=== PATIENT | male | born 1960 | race American Indian/Alaskan Native ===

== ENCOUNTER 2017-08-09 05:52 | Inpatient (IN) | payer OTHER, SELFPAY ==
[2017-08-09] MEDS ORDERED: ASPIRIN PO ONE (06:15)
[2017-08-09 06:31] LABS: Basophils % (Auto) 0.6 % (0.0-1.8); Eosinophils # (Auto) 0.1 K/mm3 (0.0-0.4); Eosinophils % (Auto) 2.6 % (0.0-4.3); Hematocrit 41.1 % (35.5-45.6); Hemoglobin 13.6 gm/dl (11.8-15.2); Lymphocytes # (Auto) 2.6 K/mm3 (1.2-5.4); Lymphocytes % (Auto) 45.2 % (13.4-35.0); Mean Corpuscular HGB Conc 33 % (32-34); Mean Corpuscular Hemoglobin 31 pg (28-32); Mean Corpuscular Volume 94 fl (84-94); Monocytes # (Auto) 0.4 K/mm3 (0.0-0.8); Monocytes % (Auto) 7.7 % (0.0-7.3); Platelet Count 255 K/mm3 (140-440); Red Blood Count 4.37 M/mm3 (3.65-5.03); Red Cell Distribution Width 13.6 % (13.2-15.2)
[2017-08-09 06:49] LABS: BUN/Creatinine Ratio 19; Blood Urea Nitrogen 19 mg/dL (9-20); Calcium 9.3 mg/dL (8.4-10.2); Hemolysis Index 7
[2017-08-09] MEDS ORDERED: MORPHINE IV ONE (07:19)
[2017-08-09] MEDS ORDERED: ZOFRAN IV ONE (07:19)
[2017-08-09] MEDS ORDERED: BABY ASPIRIN PO ONE (08:55)
[2017-08-09] MEDS ORDERED: APRESOLINE IV ONE (08:55)
--- NOTE | 2017-08-09 08:55 | Emergency Department Report ---
HPI - General Chief Complaint: Chest Pain Time Seen by Provider: 08/09/17 06:53 - HPI HPI: The patient is a 56-year-old male who presents for valuation chest pain. The patient reports chest pain or cough for the past 3 days, constant for the past one day, left-sided, moderate in severity, pressure-like in quality, exacerbated with deep breaths. The patient denies fever, neck pain, parasthesias , dyspnea, cough, hemoptysis, palpitations, dizziness, syncope, unilateral leg swelling, calf muscle pain. Patient also denies cocaine or other stimulant use , history of DVT or PE, recent immobilization, or history of cancer. ED Past Medical Hx - Past Medical History Previous Medical History?: No Hx Hypertension: No Hx Heart Attack/AMI: No Hx Congestive Heart Failure: No Hx Diabetes: No Hx Deep Vein Thrombosis: No Hx Pulmonary Embolism: No Hx Liver Disease: No Hx Renal Disease: No Hx Sickle Cell Disease: No Hx Arthritis: No Hx Seizures: No Hx Kidney Stones: No Hx Asthma: No Hx COPD: No Hx Tuberculosis: No Hx HIV: No - Surgical History Hx Coronary Stent: No Hx Open Heart Surgery: No Hx Pacemaker: No Hx Internal Defibrillator: No Hx Cholecystectomy: No Hx Appendectomy: Yes (?) Hx Breast Surgery: No - Social History Smoking Status: Never Smoker Substance Use Type: Alcohol - Medications Home Medications: Home Medications Medication Instructions Recorded Confirmed Last Taken Type Aspirin [Aspirin BABY CHEW TAB] 81 mg PO QDAY 02/08/13 02/08/13 02/15/13 History Levofloxacin 500Mg/100Ml [Levaquin 500 mg PO DAILY #3 bag 02/11/13 02/14/13 Rx IV PREMIX] Hydrocodone Bit/Acetaminophen 1 each PO Q4H PRN #24 tablet 02/25/13 Unknown Rx [Vicodin 5/500] ED Review of Systems ROS: Stated complaint: CHEST PAIN Other details as noted in HPI Constitutional: denies: fever ENT: denies: throat or neck pain Respiratory: denies: cough, shortness of breath Cardiovascular: reports: chest pain Endocrine: denies unexplained weight loss or gain Gastrointestinal: denies: abdominal pain, nausea Genitourinary: denies: dysuria Musculoskeletal: denies: leg swelling Skin: denies: rash Neurological: denies: headache Hematological/Lymphatic: denies: easy bleeding or easy bruising Psych: denies sadness or hopelessness Physical Exam - Physical Exam Vital Signs: Vital Signs 08/09/17 06:09 Temperature 97.5 F L Pulse Rate 72 Respiratory 18 Rate Blood Pressure 159/93 O2 Sat by Pulse 98 Oximetry Physical Exam: General: well-nourished, well-developed, no acute distress Head: Normocephalic, atraumatic Eyes: normal sclera ENT: Mucous membranes are pink and moist Neck: trachea midline, neck supple, No neck stiffness, no cervical adenopathy Respiratory: Breath sounds equal bilaterally, no wheezing, rales, or rhonchi Cardio: S1 and S2 present, no murmurs, rubs, gallops, capillary refill is brisk Abdomen: Normoactive bowel sounds, soft abdomen, no rigidity, no guarding or rebound tenderness Chest WALL/Back: No tenderness to palpation of the chest wall, no CVA tenderness with percussion Musc: No pitting edema Skin: No rash Neuro: no facial drooping, normal speech Psych: Normal affect ED Course Vital Signs 08/09/17 06:09 Temperature 97.5 F L Pulse Rate 72 Respiratory 18 Rate Blood Pressure 159/93 O2 Sat by Pulse 98 Oximetry ED Medical Decision Making - Lab Data Result diagrams: 08/09/17 06:17 08/09/17 06:17 - Medical Decision Making The patient was seen and examined by myself. The patient is placed on a cardiac exercise physiologist and continuous pulse ox. On initial evaluation, the patient was found to be in no distress. EKG was negative for findings suggestive of acute cardiac infarct. The patient is given an aspirin and IV pain medicine. Labs and imaging are obtained. Chest x-ray is negative for pneumothorax, focal consolidation, pulmonary vascular congestion, pleural effusion, or other obvious acute cardiopulmonary disease process. Lab results were non-revealing including negative troponin, WBC, hemoglobin, hematocrit, electrolytes, renal function. CT and a gram of the chest is negative for aortic dissection or pulmonary embolus. The patient was reevaluated and reported that their symptoms were improved. As the patient has chest pain and risk factors for development of acute coronary event, the patient will be admitted for close cardiopulmonary monitoring, serial troponins , and evaluation by cardiology. The physician on-call was contacted. They presented to the emergency department and evaluated the patient. They agreed to admit the patient. The ED admit order was placed. The patient was admitted in guarded condition. Critical care attestation.: If time is entered above; I have spent that time in minutes in the direct care of this critically ill patient, excluding procedure time. ED Disposition Clinical Impression: Acute chest pain, Hypertensive urgency Disposition: DC-09 OP ADMIT IP TO THIS HOSP Is pt being admited?: Yes Does the pt Need Aspirin: Yes Condition: Stable Instructions: Chest Pain (ED) Referrals: SRAVANTHI PINON JR, MD [Primary Care Provider] - 3-5 Days Time of Disposition: 08:55
--- NOTE | 2017-08-09 09:30 | XRay Report ---
PORTABLE CHEST: Chest pain. An AP portable view of the chest demonstrates a normal cardiac contour considering the limits of this technique. The lungs are clear with no evidence of infiltrate, fluid or failure. IMPRESSION: Normal portable chest.
--- NOTE | 2017-08-09 09:48 | Cat Scan Report ---
CT angiogram the chest: Chest pain. Following injection of contrast transverse images were obtained through the chest using pulmonary embolus protocol. Coronal and sagittal 2-D reformatted images as well as 3-D MIP images included. There is good opacification of the pulmonary vessels and cardiac chambers with no filling defects. The thoracic aorta is well-opacified and normal in size and contour. No adenopathy. The central airways are patent. The lungs are clear with no infiltrate and no nodule. No pleural disease identified. No chest wall abnormality. Impression: Normal exam.
--- NOTE | 2017-08-09 10:39 | History and Physical Report ---
History of Present Illness Chief complaint: My chest was hurting History of present illness: 56 YO Male with Obesity, presents to ED for evaluation. Pt states that he has experienced pain in his chest for the past 3 days. Pt states that pain is 6/10, constant, localized to the left chest, worse with deep breathing, relieved with rest, not associated with shortness of breath. Pt denies fever, chills, palpitations, leg swelling, calf pain, prolonged travel/immobility, hemoptysis, individual/family history of DVT/PE, productive cough, or recent ill contacts. Pt seen and evaluated in ED and found to have ACS. Pt admitted to telemetry. Past History Past Medical History: other (Obesity) Past Surgical History: appendectomy Social history: . denies: smoking, alcohol abuse, prescription drug abuse Family history: CAD, hypertension Medications and Allergies Allergies Allergy/AdvReac Type Severity Reaction Status Date / Time No Known Allergies Allergy Unverified 02/07/13 14:44 Home Medications Medication Instructions Recorded Confirmed Last Taken Type Aspirin [Aspirin BABY CHEW TAB] 81 mg PO QDAY 02/08/13 08/09/17 02/15/13 History Levofloxacin 500Mg/100Ml [Levaquin 500 mg PO DAILY #3 bag 02/11/13 08/09/1705/17 Rx IV PREMIX] Hydrocodone Bit/Acetaminophen 1 each PO Q4H PRN #24 tablet 02/25/13 08/09/17 Unknown Rx [Vicodin 5/500] Review of Systems Constitutional: no weight loss, no weight gain, no fever, no chills Ears, nose, mouth and throat: no ear pain, no ear discharge, no tinnitis, no decreased hearing, no nose pain, no nasal congestion, no nasal discharge, no sinus pressure Cardiovascular: chest pain, no orthopnea, no palpitations, no rapid/irregular heart beat, no edema, no syncope Respiratory: no cough, no cough with sputum, no hemoptysis, no shortness of breath, no dyspnea on exertion Gastrointestinal: no abdominal pain, no nausea, no vomiting, no diarrhea, no constipation, no change in bowel habits Genitourinary Male: no hematuria, no flank pain, no discharge, no urinary frequency, no urinary hesitancy, no nocturia, no incontinence Rectal: no pain, no incontinence, no bleeding Musculoskeletal: no neck pain, no shooting arm pain, no arm numbness/tingling, no low back pain, no shooting leg pain, no leg numbness/tingling Integumentary: no rash, no pruritis, no redness, no sores, no wounds, no jaundice, no boils Neurological: no transient paralysis, no paralysis, no weakness, no parathesias , no numbness, no tingling, no seizures, no syncope, no tremors Psychiatric: no anxiety, no memory loss, no change in sleep habits, no sleep disturbances, no insomnia, no hypersomnia, no change in appetite, no change in libido, no suicidal ideation Endocrine: no cold intolerance, no heat intolerance, no polyphagia, no excessive thirst, no polydipsia, no polyuria, no nocturia Hematologic/Lymphatic: no easy bruising, no easy bleeding, no lymphadenopathy, no lymphedema Allergic/Immunologic: no urticaria, no allergic rhinitis, no wheezing Exam - Constitutional Vitals: Temp Pulse Resp BP Pulse Ox 97.5 F L 84 16 124/84 95 08/09/17 06:09 08/09/17 09:05 08/09/17 09:05 08/09/17 09:13 08/09/17 09:05 General appearance: Present: mild distress - EENT Eyes: Present: PERRL ENT: hearing intact, clear oral mucosa - Neck Neck: Present: supple, normal ROM - Respiratory Respiratory effort: normal Respiratory: bilateral: CTA - Cardiovascular Heart Sounds: Present: S1 & S2. Absent: rub, click - Extremities Extremities: pulses symmetrical, No edema Peripheral Pulses: within normal limits - Abdominal General gastrointestinal: Present: soft, non-tender, non-distended, normal bowel sounds Male genitourinary: Present: normal - Integumentary Integumentary: Present: clear, warm, dry - Musculoskeletal Musculoskeletal: gait normal, strength equal bilaterally - Psychiatric Psychiatric: appropriate mood/affect, intact judgment & insight - Neurologic Neurologic: CNII-XII intact, moves all extremities Results - Labs CBC & Chem 7: 08/09/17 11:11 08/09/17 11:11 Labs: Abnormal lab results 08/09/17 08/09/17 Range/Units 06:17 06:17 Lymph % (Auto) 45.2 H (13.4-35.0) % Phillips % (Auto) 7.7 H (0.0-7.3) % Glucose 116 H (75-100) mg/dL Assessment and Plan - Patient Problems (1) ACS (acute coronary syndrome) Current Visit: Yes Status: Acute Plan to address problem: Cardiology consulted: Serial cardiac enzymes, ekg, telemetry, echo, stress test , lipid panel, supplemental oxygen, morphine, nitro, aspirin. (2) HTN (hypertension) Current Visit: Yes Status: Acute Qualifiers: Hypertension type: essential hypertension Qualified Code(s): I10 - Essential (primary) hypertension Plan to address problem: Monitor BP q shift, IV hydralazine prn, (3) DVT prophylaxis Current Visit: Yes Status: Acute
[2017-08-09] MEDS ORDERED: TYLENOL PO PRN (10:40)
[2017-08-09] MEDS ORDERED: SODIUM CHLORIDE FLUSH SYRINGE 10 ML IV PRN ×2 (10:40)
[2017-08-09] MEDS ORDERED: ZOFRAN IV PRN (10:40)
[2017-08-09] MEDS ORDERED: PROVENTIL IH PRN (10:40)
[2017-08-09] MEDS ORDERED: NITROSTAT SL PRN (10:40)
[2017-08-09] MEDS ORDERED: MORPHINE IV PRN (10:40)
[2017-08-09 11:36] LABS: Basophils % (Auto) 0.8 % (0.0-1.8); Eosinophils # (Auto) 0.1 K/mm3 (0.0-0.4); Eosinophils % (Auto) 2.1 % (0.0-4.3); Hematocrit 40.6 % (35.5-45.6); Hemoglobin 13.4 gm/dl (11.8-15.2); Lymphocytes # (Auto) 2.7 K/mm3 (1.2-5.4); Lymphocytes % (Auto) 50.9 % (13.4-35.0); Mean Corpuscular HGB Conc 33 % (32-34); Mean Corpuscular Hemoglobin 31 pg (28-32); Mean Corpuscular Volume 93 fl (84-94); Monocytes # (Auto) 0.4 K/mm3 (0.0-0.8); Monocytes % (Auto) 7.1 % (0.0-7.3); Platelet Count 232 K/mm3 (140-440); Red Blood Count 4.34 M/mm3 (3.65-5.03); Red Cell Distribution Width 13.7 % (13.2-15.2)
[2017-08-09 11:48] LABS: BUN/Creatinine Ratio 21; Blood Urea Nitrogen 17 mg/dL (9-20); Calcium 8.9 mg/dL (8.4-10.2); Hemolysis Index 145
[2017-08-09] MEDS ORDERED: MORPHINE ONE (11:50)
[2017-08-09 11:52] LABS: Chol/HDL Ratio 5.31 %
[2017-08-09] MEDS: MORPHINE IV PRN ×3 (11:52→21:25)
[2017-08-09] MEDS: PEPCID PO SCH (21:24)
[2017-08-09] MEDS: SODIUM CHLORIDE FLUSH SYRINGE 10 ML IV SCH (21:25)
[2017-08-10] MEDS: PEPCID PO SCH ×2 (10:00→21:14)
[2017-08-10] MEDS: SODIUM CHLORIDE FLUSH SYRINGE 10 ML IV SCH ×2 (10:00→21:33)
--- NOTE | 2017-08-10 11:59 | Consultation ---
History of Present Illness Consult date: 08/10/17 Consult reason: chest pain History of present illness: This is a 56yr old male with no prior medical history who presents with atypical chest pain. Patient associates chest pain when deep breathing and when left arm is raised. There were no reports of shortness of breath or palpitations. There was no pre-syncope or syncope. An EKG is a sinus rhythm, no acute ischemic changes. Patient was admitted for rule out acute coronary syndrome with a stress thallium test ordered by the primary team. Past History Past Medical History: other (Obesity) Past Surgical History: appendectomy Social history: . denies: smoking, alcohol abuse, prescription drug abuse Family history: CAD, hypertension Medications and Allergies Allergies Allergy/AdvReac Type Severity Reaction Status Date / Time No Known Allergies Allergy Unverified 02/07/13 14:44 Home Medications Medication Instructions Recorded Confirmed Last Taken Type Aspirin [Aspirin BABY CHEW TAB] 81 mg PO QDAY 02/08/13 08/09/17 02/15/13 History Levofloxacin 500Mg/100Ml [Levaquin 500 mg PO DAILY #3 bag 02/11/13 08/09/1705/17 Rx IV PREMIX] Hydrocodone Bit/Acetaminophen 1 each PO Q4H PRN #24 tablet 02/25/13 08/09/17 Unknown Rx [Vicodin 5/500] Active Meds: Active Medications Acetaminophen (Tylenol) 650 mg PO Q4H PRN PRN Reason: Pain MILD(1-3)/Fever >100.5/JOYCE Albuterol (Proventil) 2.5 mg IH Q4HRT PRN PRN Reason: Shortness Of Breath Famotidine (Pepcid) 20 mg PO BID [facility] Last Admin: 08/09/17 21:24 Dose: 20 mg Morphine Sulfate (Morphine) 2 mg IV Q4H PRN PRN Reason: Pain , Severe (7-10) Last Admin: 08/09/17 21:25 Dose: 2 mg Nitroglycerin (Nitrostat) 0.4 mg SL Q5M PRN PRN Reason: Chest Pain Ondansetron HCl (Zofran) 4 mg IV Q8H PRN PRN Reason: Nausea And Vomiting Sodium Chloride (Sodium Chloride Flush Syringe 10 Ml) 10 ml IV BID [facility] Last Admin: 08/09/17 21:25 Dose: 10 ml Sodium Chloride (Sodium Chloride Flush Syringe 10 Ml) 10 ml IV PRN PRN PRN Reason: LINE FLUSH Physical Examination Vital Signs Temp Pulse Resp BP Pulse Ox 97.5 F L 72 18 159/93 98 08/09/17 06:09 08/09/17 06:09 08/09/17 06:09 08/09/17 06:09 08/09/17 06:09 General appearance: no acute distress Cardiac: Positive: Reg Rate and Rhythm Results 08/09/17 11:11 08/09/17 11:11 Lipids 08/09/17 Range/Units 11:11 Triglycerides 158 H (2-149) mg/dL Cholesterol 218 H (50-199) mg/dL HDL Cholesterol 41 (40-59) mg/dL Cholesterol/HDL Ratio 5.31 % Comprehensive Metabolic Panel 08/09/17 Range/Units 11:11 Potassium 5.0 D (3.6-5.0) mmol/L Assessment and Plan Chest pain, atypical likely musculoskeletal CTA negative for PE negative cardiac markers Stress thallium and echocardiogram results are pending.
--- NOTE | 2017-08-10 13:22 | Progress Note ---
Assessment and Plan Assessment and plan: 56 YO Male with Obesity, presents to ED for evaluation. Pt states that he has experienced pain in his chest for the past 3 days. Pt states that pain is 6/10, constant, localized to the left chest, worse with deep breathing, relieved with rest, not associated with shortness of breath. Pt denies fever, chills, palpitations, leg swelling, calf pain, prolonged travel/immobility, hemoptysis, individual/family history of DVT/PE, productive cough, or recent ill contacts Chest pain, atypical Cardiology following: Serial cardiac enzymes have been negative, echo and stress test results are pending continue aspirin, morphine, nitro as needed HTN (hypertension): Currently controlled, IV hydralazine prn Hyperlipidemia Statin initiated DVT prophylaxis SCDs History Interval history: Patient seen and examined. No new issues overnight. Labs and nursing notes reviewed. Hospitalist Physical - Constitutional Vitals: Temp Pulse Resp BP Pulse Ox 98.5 F 73 20 136/84 96 08/10/17 11:52 08/10/17 11:52 08/10/17 11:52 08/10/17 11:52 08/10/17 11:52 General appearance: Present: no acute distress, well-nourished, obese - EENT Eyes: Present: PERRL, EOM intact ENT: hearing intact, clear oral mucosa - Neck Neck: Present: supple, normal ROM - Respiratory Respiratory effort: normal Respiratory: bilateral: CTA - Cardiovascular Rhythm: regular Heart Sounds: Present: S1 & S2 - Extremities Extremities: no ischemia, No edema - Abdominal General gastrointestinal: soft, non-tender, non-distended - Integumentary Integumentary: Present: clear, warm, dry - Psychiatric Psychiatric: appropriate mood/affect, cooperative - Neurologic Neurologic: CNII-XII intact, moves all extremities - Allied Health Allied health notes reviewed: nursing Results - Labs CBC & Chem 7: 08/09/17 11:11 08/09/17 11:11 Labs: Laboratory Last Values WBC 5.3 K/mm3 (4.5-11.0) 08/09/17 11:11 RBC 4.34 M/mm3 (3.65-5.03) 08/09/17 11:11 Hgb 13.4 gm/dl (11.8-15.2) 08/09/17 11:11 Hct 40.6 % (35.5-45.6) 08/09/17 11:11 MCV 93 fl (84-94) 08/09/17 11:11 MCH 31 pg (28-32) 08/09/17 11:11 MCHC 33 % (32-34) 08/09/17 11:11 RDW 13.7 % (13.2-15.2) 08/09/17 11:11 Plt Count 232 K/mm3 (140-440) 08/09/17 11:11 Lymph % (Auto) 50.9 % (13.4-35.0) H 08/09/17 11:11 [place] % (Auto) 7.1 % (0.0-7.3) 08/09/17 11:11 Eos % (Auto) 2.1 % (0.0-4.3) 08/09/17 11:11 Baso % (Auto) 0.8 % (0.0-1.8) 08/09/17 11:11 Lymph # 2.7 K/mm3 (1.2-5.4) 08/09/17 11:11 [place] # 0.4 K/mm3 (0.0-0.8) 08/09/17 11:11 Eos # 0.1 K/mm3 (0.0-0.4) 08/09/17 11:11 Baso # 0.0 K/mm3 (0.0-0.1) 08/09/17 11:11 Seg Neutrophils % 39.1 % (40.0-70.0) L 08/09/17 11:11 Seg Neutrophils # 2.1 K/mm3 (1.8-7.7) 08/09/17 11:11 Sodium 132 mmol/L (137-145) L 08/09/17 11:11 Potassium 5.0 mmol/L (3.6-5.0) D 08/09/17 11:11 Chloride 99.4 mmol/L (98-107) 08/09/17 11:11 Carbon Dioxide 22 mmol/L (22-30) 08/09/17 11:11 Anion Gap 16 mmol/L 08/09/17 11:11 BUN 17 mg/dL (9-20) 08/09/17 11:11 Creatinine 0.8 mg/dL (0.8-1.5) 08/09/17 11:11 Estimated GFR > 60 ml/min 08/09/17 11:11 BUN/Creatinine Ratio 21 % 08/09/17 11:11 Glucose 103 mg/dL (75-100) H 08/09/17 11:11 Calcium 8.9 mg/dL (8.4-10.2) 08/09/17 11:11 Troponin T < 0.010 ng/mL (0.00-0.029) 08/09/17 17:11 Triglycerides 158 mg/dL (2-149) H 08/09/17 11:11 Cholesterol 218 mg/dL (50-199) H 08/09/17 11:11 LDL Cholesterol Direct 146 mg/dL (50-130) H 08/09/17 11:11 HDL Cholesterol 41 mg/dL (40-59) 08/09/17 11:11 Cholesterol/HDL Ratio 5.31 % 08/09/17 11:11
[2017-08-10 14:47] LABS: BUN/Creatinine Ratio 15; Blood Urea Nitrogen 16 mg/dL (9-20); Calcium 9.1 mg/dL (8.4-10.2); Hemolysis Index 1
--- NOTE | 2017-08-10 15:54 | Discharge Summary ---
Providers - Providers Date of Admission: 08/09/17 10:40 Date of discharge: 08/10/17 Attending physician: BOB ASH 08/09/17 Consult to Cardiac Rehabilitation [CONS] Routine Reason For Exam: Phase I 08/09/17 10:40 Consult to Cardiology [CONS] Routine Consulting Provider: PHILIP ALEMAN Reason For Exam: acs Primary care physician: SRAVANTHI PINON Hospitalization Condition: Stable Pertinent studies: Normal myocardial perfusion study CTA chest and chest Xray were normal Echo showed EF of 50-55% with global left ventricular systolic function at the lower limits of normal Hospital course: 56 YO Male with Obesity, presents to ED for evaluation. Pt states that he has experienced pain in his chest for the past 3 days. Pt states that pain is 6/10, constant, localized to the left chest, worse with deep breathing, relieved with rest, not associated with shortness of breath. -Patient had a cardiac workup which was all negative. Cardiology was consulted and determined that patient had a low likelihood of cardiac ischemia as the etiology of his presentation. -Patient was clinically stable for discharge back home. He resumed all home medications and was initiated on statin therapy for hyperlipidemia. Discharge diagnoses Atypical chest pain likely due to costochondritis Hypertension chronic Hyperlipidemia likely due to genetic disposition/poor diet and lack of exercise DVT prophylaxis Disposition: DC-01 TO HOME OR SELFCARE Time spent for discharge: 33 minutes Core Measure Documentation - Palliative Care Palliative Care/ Comfort Measures: Not Applicable - Core Measures Any of the following diagnoses?: none Exam - Constitutional Vitals: Temp Pulse Resp BP Pulse Ox 98.5 F 73 20 136/84 96 08/10/17 11:52 08/10/17 11:52 08/10/17 11:52 08/10/17 11:52 08/10/17 11:52 General appearance: Present: no acute distress, well-nourished - EENT Eyes: Present: PERRL ENT: hearing intact, clear oral mucosa - Neck Neck: Present: supple, normal ROM - Respiratory Respiratory effort: normal Respiratory: bilateral: CTA - Cardiovascular Heart Sounds: Present: S1 & S2. Absent: rub, click - Extremities Extremities: pulses symmetrical, No edema Peripheral Pulses: within normal limits - Abdominal General gastrointestinal: Present: soft, non-tender, non-distended, normal bowel sounds Male genitourinary: Present: normal - Integumentary Integumentary: Present: clear, warm, dry - Musculoskeletal Musculoskeletal: gait normal, strength equal bilaterally - Psychiatric Psychiatric: appropriate mood/affect, intact judgment & insight - Neurologic Neurologic: CNII-XII intact, moves all extremities Plan Diet: low fat, low cholesterol, low salt Follow up with: SRAVANTHI PINON JR, MD [Primary Care Provider] - 3-5 Days Prescriptions: AtorvaSTATin [Lipitor] 20 mg PO QHS #30 tablet Pending Studies Discharge pending normal stress test and echo
[2017-08-10 20:47] VITALS: BP 142/84
--- NOTE | 2017-08-10 22:19 | Treadmill Report ---
THALLIUM STRESS TEST LEFT VENTRICLE: Left ventricular chamber size is within normal. Perfusion study demonstrates homogeneous uptake of the tracer in all segments, no significant perfusion defects identified. Mild diaphragmatic attenuation artifact is noted. Gated analysis demonstrates normal left ventricular systolic function, ejection fraction of 58%. CONCLUSION: Normal myocardial perfusion study. JOB# [id number] CA/NTS
== END 2017-08-10 22:35 | disposition home or self-care (01) | DRG 206 ==
LOC: ED 05:52 → 4A 10:40
PROVIDERS: ADMIT Internal Medicine; ATTEND Internal Medicine
DX: M94.0 Chondrocostal junction syndrome [Tietze] (principal); I24.9 Acute ischemic heart disease, unspecified; I10 Essential (primary) hypertension; E66.9 Obesity, unspecified; I16.0 Hypertensive urgency; I51.7 Cardiomegaly; E78.5 Hyperlipidemia, unspecified; Z90.49 Acquired absence of other specified parts of digestive tract; Z72.89 Other problems related to lifestyle; Z79.82 Long term (current) use of aspirin; Z79.899 Other long term (current) drug therapy; Z82.49 Family history of ischemic heart disease and other diseases of the circulatory system
CPT/HCPCS: 36415; 71045; 71275; 78452; 80048; 80061; 84484; 85025; 93005; 93010; 93017; 93306; 96374; 96375; A9270-GY; A9502; J2270; J2405; Q9967

== ENCOUNTER 2019-06-16 20:32 | Observation (INO) | payer OTHER ==
--- NOTE | 2019-06-16 22:02 | Event Note ---
ED Screening Note ED Screening Note: left sided CP that began today tightness/throbbing +nausea no vomiting no radiation of the pain mild SOB which resolved had before, states it was a muscle spasm PMHx none no allergies to meds non smoker no recent travel no recent surgery This initial assessment/diagnostic orders/clinical plan/treatment(s) is/are subject to change based on patients health status, clinical progression and re- assessment by fellow clinical providers in the ED. Further treatment and workup at subsequent clinical providers discretion. Patient/guardian urged not to elope from the ED as their condition may be serious if not clinically assessed and managed. Initial orders include: CP protocol
--- NOTE | 2019-06-16 22:38 | XRay Report ---
CHEST 2 VIEWS INDICATION / CLINICAL INFORMATION: CP. COMPARISON: 08/09/2017 FINDINGS: SUPPORT DEVICES: None. HEART / MEDIASTINUM: No significant abnormality. LUNGS / PLEURA: No significant pulmonary or pleural abnormality. No pneumothorax. ADDITIONAL FINDINGS: No significant additional findings. IMPRESSION: 1. No acute findings. No interval change. Signer Name: Ceci Bobby MD Signed: 06/16/2019 10:33 PM Workstation Name: [id number]
[2019-06-16 23:01] LABS: Basophils % (Auto) 0.6 % (0.0-1.8); Eosinophils # (Auto) 0.1 K/mm3 (0.0-0.4); Eosinophils % (Auto) 2.5 % (0.0-4.3); Hematocrit 42.5 % (35.5-45.6); Lymphocytes # (Auto) 2.4 K/mm3 (1.2-5.4); Lymphocytes % (Auto) 43.1 % (13.4-35.0); Mean Corpuscular HGB Conc 33 % (32-34); Mean Corpuscular Volume 94 fl (84-94); Monocytes # (Auto) 0.4 K/mm3 (0.0-0.8); Monocytes % (Auto) 6.9 % (0.0-7.3); Platelet Count 276 K/mm3 (140-440); Red Blood Count 4.55 M/mm3 (3.65-5.03); Red Cell Distribution Width 14.2 % (13.2-15.2)
[2019-06-16 23:27] LABS: Alanine Aminotransferase 23 units/L (7-56); Albumin 4.6 g/dL (3.9-5); BUN/Creatinine Ratio 17; Blood Urea Nitrogen 15 mg/dL (9-20); Calcium 9.7 mg/dL (8.4-10.2); Hemolysis Index 19
[2019-06-17] MEDS ORDERED: ASPIRIN 325 MG TAB PO ONE (00:30)
[2019-06-17] MEDS ORDERED: ONDANSETRON 4 MG ODT TAB PO ONE (00:31)
[2019-06-17] MEDS ORDERED: MORPHINE 4 MG/1 ML INJ IV ONE (01:31)
[2019-06-17] MEDS ORDERED: ONDANSETRON 4 MG/2 ML INJ IV ONE (01:31)
--- NOTE | 2019-06-17 01:37 | Emergency Department Report ---
ED Chest Pain HPI - General Chief Complaint: Chest Pain Stated Complaint: CP/NAUSEA Time Seen by Provider: 06/16/19 22:00 Source: patient Mode of arrival: Ambulatory Limitations: No Limitations - History of Present Illness Initial Comments: Patient is a 58-year-old male with a history of hypertension who presents to the ED with complaint of acute onset persistent intermittent left-sided chest pain that radiates to the left with nausea for the last 12 hours. Patient states that initially the chest pain was mild and intermittent, but in the last 4 hours, the pain got worse and he describes it as pressure and tightness with persistent nausea and shortness of breath. Patient denies diaphoresis, headache, dizziness, palpitations, syncope, abdominal pain, sore throat, change in vision, fever and chills or cough. MD Complaint: chest pain, other (dyspnea, nausea) -: Sudden, hour(s) (12) Onset: during rest, awoke with symptoms Pain Location: substernal, left chest Pain Radiation: RUE Severity: severe Severity scale (0 -10): 7 Quality: tightness, heaviness, sharp Consistency: intermittent Improves With: nothing Worsens With: nothing re: nausea, dyspnea. denies: vomting, diaphoresis, sense of impending doom, other Other Symptoms: denies: cough, fever, syncope, rash, acid taste in mouth, leg swelling, palpitations, burping, other Treatments Prior to Arrival: none Aspirin use within the Past 7 Days: (0) No - Related Data On Oral Contraceptives: No Home Medications Medication Instructions Recorded Confirmed Last Taken Aspirin [Aspirin BABY CHEW TAB] 81 mg PO QDAY 02/08/13 08/09/17 02/15/13 Previous Rx's Medication Instructions Recorded Last Taken Type levoFLOXacin 500MG/100ML [Levaquin 500 mg PO DAILY #3 bag 02/11/13 02/14/13 Rx IV PREMIX] Hydrocodone Bit/Acetaminophen 1 each PO Q4H PRN #24 tablet 02/25/13 Unknown Rx [Vicodin 5/500] AtorvaSTATin [Lipitor] 20 mg PO QHS #30 tablet 08/10/17 Unknown Rx Allergies Allergy/AdvReac Type Severity Reaction Status Date / Time No Known Allergies Allergy Unverified 02/07/13 14:44 Heart Score - HEART Score History: Slightly suspicious EKG: Normal Age: 45-65 Risk factors: 1-2 risk factors Troponin: < normal limit HEART Score: 2 - Critical Actions Critical Actions: 0-3 pts:0.9-1.7%risk of adverse cardiac event.Candidate for discharge ED Review of Systems ROS: Stated complaint: CP/NAUSEA Other details as noted in HPI Constitutional: denies: chills, fever Eyes: denies: eye pain, eye discharge, vision change ENT: denies: ear pain, throat pain Respiratory: shortness of breath. denies: cough, wheezing Cardiovascular: chest pain (left-sided ). denies: palpitations, dyspnea on exertion, orthopnea, edema, syncope, paroxysmal nocturnal dyspnea Endocrine: no symptoms reported Gastrointestinal: nausea. denies: abdominal pain, vomiting, diarrhea Genitourinary: denies: urgency, dysuria Musculoskeletal: denies: back pain, joint swelling, arthralgia Skin: denies: rash, lesions Neurological: denies: headache, weakness, paresthesias Psychiatric: denies: anxiety, depression Hematological/Lymphatic: denies: easy bleeding, easy bruising ED Past Medical Hx - Past Medical History Previous Medical History?: No Hx Hypertension: Yes Hx Heart Attack/AMI: No Hx Congestive Heart Failure: No Hx Diabetes: No Hx Deep Vein Thrombosis: No Hx Pulmonary Embolism: No Hx Liver Disease: No Hx Renal Disease: No Hx Sickle Cell Disease: No Hx Arthritis: No Hx Seizures: No Hx Kidney Stones: No Hx Asthma: No Hx COPD: No Hx Tuberculosis: No Hx HIV: No - Surgical History Past Surgical History?: Yes Hx Coronary Stent: No Hx Open Heart Surgery: No Hx Pacemaker: No Hx Internal Defibrillator: No Hx Cholecystectomy: No Hx Appendectomy: Yes (?2012/2013) Hx Breast Surgery: No - Social History Smoking Status: Never Smoker Substance Use Type: None - Medications Home Medications: Home Medications Medication Instructions Recorded Confirmed Last Taken Type Aspirin [Aspirin BABY CHEW TAB] 81 mg PO QDAY 02/08/13 08/09/17 02/15/13 History levoFLOXacin 500MG/100ML [Levaquin 500 mg PO DAILY #3 bag 02/11/13 08/09/17 02/14/13 Rx IV PREMIX] Hydrocodone Bit/Acetaminophen 1 each PO Q4H PRN #24 tablet 02/25/13 08/09/17 Unknown Rx [Vicodin 5/500] AtorvaSTATin [Lipitor] 20 mg PO QHS #30 tablet 08/10/17 Unknown Rx ED Physical Exam - General Limitations: No Limitations General appearance: alert, in no apparent distress - Head Head exam: Present: atraumatic, normocephalic, normal inspection - Eye Eye exam: Present: normal appearance, PERRL, EOMI Pupils: Present: normal accommodation - ENT ENT exam: Present: normal exam, normal orophraynx, mucous membranes moist, TM's normal bilaterally, normal external ear exam - Neck Neck exam: Present: normal inspection, full ROM - Respiratory Respiratory exam: Present: normal lung sounds bilaterally. Absent: respiratory distress, wheezes, rales, rhonchi, chest wall tenderness, accessory muscle use, decreased breath sounds, prolonged expiratory - Cardiovascular Cardiovascular Exam: Present: regular rate, normal rhythm, normal heart sounds. Absent: systolic murmur, diastolic murmur, rubs, gallop - GI/Abdominal GI/Abdominal exam: Present: soft, normal bowel sounds. Absent: tenderness, guarding, hyperactive bowel sounds, hypoactive bowel sounds, organomegaly - Extremities Exam Extremities exam: Present: normal inspection, full ROM, normal capillary refill - Back Exam Back exam: Present: normal inspection, full ROM. Absent: tenderness, muscle spasm, paraspinal tenderness - Neurological Exam Neurological exam: Present: alert, oriented X3, CN II-XII intact, normal gait, reflexes normal - Psychiatric Psychiatric exam: Present: normal affect, normal mood - Skin Skin exam: Present: warm, dry, intact, normal color. Absent: rash ED Course Vital Signs 06/16/19 06/16/19 20:45 21:57 Temperature 98.4 F 98.4 F Pulse Rate 65 65 Respiratory 18 18 Rate Blood Pressure 149/91 149/91 O2 Sat by Pulse 97 96 Oximetry JESS score - Jess Score Age > 65: (0) No Aspirin use within the Past 7 Days: (0) No 3 or more CAD Risk Factors: (0) No 2 or more Angina events in past 24 hrs: (0) No Known CAD with more than 50% Stenosis: (0) No Elevated Cardiac Markers: (0) No ST Deviation Greater than 0.5mm: (0) No JESS Score: 0 ED Medical Decision Making - Lab Data Result diagrams: 06/16/19 22:43 06/16/19 22:43 - EKG Data Rate: bradycardia - EKG Data 06/17/19 01:50 EKG shows sinus bradycardia with ventricular rate of 59 bpm, and no pathological Q waves but nonspecific T-wave abnormalities in the inferior leads - Radiology Data Radiology results: report reviewed, image reviewed Chest x-ray shows no acute cardiopulmonary abnormalities or pneumonitis - Medical Decision Making This is a 58-year-old -[place] male with a history of hypertension who presented to the ED with left-sided chest pain that he gets of the left with nausea and shortness of breath, worse in the last 4 hours. In the ED, patient is alert and oriented 3 and is not in any distress, and appears to be in pain. Patient was treated in the ED initially with aspirin and Zofran. EKG shows sinus bradycardia with ventricular rate of 59 bpm, and no pathological Q waves, but nonspecific T-wave abnormalities in the inferior leads. Chest x-ray shows no acute cardiopulmonary abnormalities or pneumonitis. Initial lab test results were reviewed and all nonactionable including initial troponin level. The patient heart score is 2, and his JESS is 0. On reevaluation, patient still complains of severe left sided chest pain. Patient was treated with morphine 4 mg IV and antiemetics Zofran. Pulmonary clots, the patient had thallium stress test in [facility] about 2 years ago on August 2017, there is also which showed normal myocardial perfusion. At the same time this patient also had echocardiogram which showed global left ventricular systolic function at lower limits of normal, specifically the ejection fraction was 50-55%, and there is mild concentric left ventricular hypertrophy, mild mitral valve and tricuspid valve regurgitations per the report. Patient states that since that time he has not had any chest related complaints or pain until over 12 hours ago. I discussed the patient's case with the ED attending physician, Dr. Tyrese Gibbs who advised that the patient be admitted for observation if D-dimer is normal. The d-dimer was evaluated and was normal. Patient case was discussed with [facility] hospitalist physician weatherization operations manager Dr. Sorto who admitted the patient for observation. - Differential Diagnosis ACS; Pneumonia; Pericarditis; PE; Muscle strain; costochondritis Critical care attestation.: If time is entered above; I have spent that time in minutes in the direct care of this critically ill patient, excluding procedure time. ED Disposition Clinical Impression: Intermittent left-sided chest pain, Shortness of breath at rest Disposition: DC-09 OP ADMIT IP TO THIS HOSP Is pt being admited?: Yes Does the pt Need Aspirin: No Condition: Stable Instructions: Chest Pain (ED) Referrals: PRIMARY CARE, [Primary Care Provider] - 3-5 Days Time of Disposition: 02:52 Print Language: SCOTTISH
[2019-06-17 02:25] LABS: INR 0.92 (0.87-1.13)
[2019-06-17 02:27] LABS: Partial Thromboplastin Time 29.8 Sec. (24.2-36.6)
[2019-06-17] MEDS ORDERED: ONDANSETRON 4 MG/2 ML INJ IV PRN (05:25)
[2019-06-17] MEDS ORDERED: ACETAMINOPHEN 325 MG TAB PO PRN (05:25)
[2019-06-17] MEDS ORDERED: MAGNESIUM HYDROXIDE (MOM) ORAL LIQD UDC PO PRN (05:25)
--- NOTE | 2019-06-17 05:36 | History and Physical Report ---
History of Present Illness Date of examination: 06/17/19 Date of admission: 06/17/19 03:25 Chief complaint: Chest pain History of present illness: 58-year-old -[place] male with known history of hypertension presenting to the emergency room today complaining of chest pain. Chest pain is said to be left-sided radiating towards the left upper extremity. He he had some shortness of breath and nausea but no vomiting. No headache or dizziness. There is no no relieving or exacerbating factor. On a scale of 10 pain was said to be about 9/10. Chest pain was said to have lasted a few hours prior to reporting to the emergency room. Patient had a stress test about 2 years ago which was unremarkable he also had an echocardiogram with an EF of 50 to 55%. Past History Past Medical History: hypertension Past Surgical History: appendectomy Social history: no significant social history Family history: cancer (Mother of breast cancer) Medications and Allergies Allergies Allergy/AdvReac Type Severity Reaction Status Date / Time No Known Allergies Allergy Unverified 02/07/13 14:44 Home Medications Medication Instructions Recorded Confirmed Last Taken Type Aspirin [Aspirin BABY CHEW TAB] 81 mg PO QDAY 02/08/13 08/09/17 02/15/13 History levoFLOXacin 500MG/100ML [Levaquin 500 mg PO DAILY #3 bag 02/11/13 08/09/17 02/14/13 Rx IV PREMIX] Hydrocodone Bit/Acetaminophen 1 each PO Q4H PRN #24 tablet 02/25/13 08/09/17 Unknown Rx [Vicodin 5/500] AtorvaSTATin [Lipitor] 20 mg PO QHS #30 tablet 08/10/17 Unknown Rx Review of Systems Constitutional: no fever, no chills Cardiovascular: chest pain, no palpitations, no syncope Respiratory: no cough Gastrointestinal: nausea, no abdominal pain, no vomiting, no diarrhea Genitourinary Male: no dysuria, no hematuria Musculoskeletal: no neck pain, no low back pain Integumentary: no rash, no pruritis Neurological: no weakness, no syncope, no confusion, no double vision Psychiatric: no anxiety Exam - Constitutional Vitals: Temp Pulse Resp BP Pulse Ox 98.4 F 65 18 149/91 96 06/16/19 21:57 06/16/19 21:57 06/16/19 21:57 06/16/19 21:57 06/16/19 21:57 General appearance: Present: no acute distress, well-nourished - EENT Eyes: Present: PERRL, EOM intact ENT: hearing intact, clear oral mucosa, dentition normal - Neck Neck: Present: supple, normal ROM - Respiratory Respiratory effort: normal Respiratory: bilateral: CTA - Cardiovascular Rhythm: regular Heart Sounds: Present: S1 & S2 - Extremities Extremities: no ischemia, pulses intact, pulses symmetrical, No edema Peripheral Pulses: within normal limits - Abdominal General gastrointestinal: Present: soft, non-tender, non-distended - Integumentary Integumentary: Present: clear, warm, dry - Musculoskeletal Musculoskeletal: strength equal bilaterally - Psychiatric Psychiatric: appropriate mood/affect, intact judgment & insight, cooperative - Neurologic Neurologic: CNII-XII intact, moves all extremities Results - Labs CBC & Chem 7: 06/16/19 22:43 06/16/19 22:43 Labs: Abnormal lab results 06/16/19 06/16/19 Range/Units 22:43 22:43 Lymph % (Auto) 43.1 H (13.4-35.0) % Glucose 119 H (75-100) mg/dL Assessment and Plan - Patient Problems (1) Acute chest pain Current Visit: No Status: Acute Plan to address problem: Patient admitted and placed on telemetry . Check serial cardiac enzymes. He will be placed on aspirin,SL nitroglecerin and Morphine as needed for pain. (2) HTN (hypertension) Current Visit: No Status: Acute Qualifiers: Hypertension type: essential hypertension Qualified Code(s): I10 - Essential (primary) hypertension Plan to address problem: We will resume routine home medications and monitor vital signs closely. (3) DVT prophylaxis Current Visit: No Status: Acute Plan to address problem: Patient placed on subcutaneous heparin (4) Full code status Current Visit: Yes Status: Acute
[2019-06-17] MEDS: MORPHINE 2 MG/1 ML INJ IV PRN ×2 (08:19→17:27)
--- NOTE | 2019-06-17 09:47 | Consultation ---
<JAMAAL MONTOYA - Last Filed: 06/17/19 13:47> History of Present Illness Consult date: 06/17/19 Consult reason: chest pain History of present illness: 58-year old male who presented with atypical chest pain. Chest x-ray is negative. Cardiac isoenzymes are normal. EKG was a normal sinus rhythm with nonspecific Twave changes. There is no history of coronary artery disease. His latest cardiac workup was done at this hospital just over a year ago. He underwent a stress thallium during which he exercised for 9 minutes of a Adria protocol, with no chest pain and no ST changes of ischemia. Thallium images were normal. An echocardiogram showed a normal left ventricular systolic function, ejection fraction 50-55%. Past History Past Medical History: hypertension Past Surgical History: appendectomy Social history: no significant social history Family history: cancer (Mother of breast cancer) Medications and Allergies Allergies Allergy/AdvReac Type Severity Reaction Status Date / Time No Known Allergies Allergy Unverified 02/07/13 14:44 Home Medications Medication Instructions Recorded Confirmed Last Taken Type Aspirin [Aspirin BABY CHEW TAB] 81 mg PO QDAY 02/08/13 06/17/19 02/15/13 History AtorvaSTATin [Lipitor] 20 mg PO QHS #30 tablet 08/10/17 06/17/19 Unknown Rx Pantoprazole [Protonix] 40 mg PO QDAY #30 tablet 06/17/19 Unknown Rx Active Meds: Active Medications Acetaminophen (Tylenol) 650 mg PO Q4H PRN PRN Reason: Pain MILD(1-3)/Fever >100.5/JOYCE Aspirin (Ecotrin) 325 mg PO QDAY [facility] Heparin Sodium (Porcine) (Heparin) 5,000 unit SUB-Q Q8HR NOAH Magnesium Hydroxide (Milk Of Magnesia) 30 ml PO Q4H PRN PRN Reason: Constipation Morphine Sulfate (Morphine) 2 mg IV Q4H PRN PRN Reason: Pain, Moderate (4-6) Last Admin: 06/17/19 08:19 Dose: 2 mg Documented by: Ondansetron HCl (Zofran) 4 mg IV Q8H PRN PRN Reason: Nausea And Vomiting Sodium Chloride (Sodium Chloride Flush Syringe 10 Ml) 10 ml IV BID NOAH Sodium Chloride (Sodium Chloride Flush Syringe 10 Ml) 10 ml IV PRN PRN PRN Reason: LINE FLUSH Physical Examination Vital Signs Temp Pulse Resp BP Pulse Ox 98.4 F 65 18 149/91 97 06/16/19 20:45 06/16/19 20:45 06/16/19 20:45 06/16/19 20:45 06/16/19 20:45 Results 06/17/19 08:08 06/17/19 08:08 Cardiac Enzymes 06/16/19 Range/Units 22:43 AST 20 (5-40) units/L Coagulation 06/17/19 Range/Units 02:02 PT 12.4 (12.2-14.9) Sec. INR 0.92 (0.87-1.13) APTT 29.8 (24.2-36.6) Sec. CBC 06/16/19 Range/Units 22:43 WBC 5.5 (4.5-11.0) K/mm3 RBC 4.55 (3.65-5.03) M/mm3 Hgb 14.0 (11.8-15.2) gm/dl Hct 42.5 (35.5-45.6) % Plt Count 276 (140-440) K/mm3 Lymph # 2.4 (1.2-5.4) K/mm3 [place] # 0.4 (0.0-0.8) K/mm3 Eos # 0.1 (0.0-0.4) K/mm3 Baso # 0.0 (0.0-0.1) K/mm3 Comprehensive Metabolic Panel 06/16/19 Range/Units 22:43 Sodium 141 (137-145) mmol/L Potassium 4.7 (3.6-5.0) mmol/L Chloride 102.1 (98-107) mmol/L Carbon Dioxide 26 (22-30) mmol/L BUN 15 (9-20) mg/dL Creatinine 0.9 (0.8-1.5) mg/dL Glucose 119 H (75-100) mg/dL Calcium 9.7 (8.4-10.2) mg/dL AST 20 (5-40) units/L ALT 23 (7-56) units/L Alkaline Phosphatase 39 (35-129) units/L Total Protein 7.9 (6.3-8.2) g/dL Albumin 4.6 (3.9-5) g/dL Assessment and Plan Atypical chest pain Chest x-ray is negative. Cardiac isoenzymes are normal. EKG was a normal sinus rhythm with nonspecific Twave changes. Cardiac workup 08/2017: Normal myocardial perfusion thallium stress test. An echocardiogram showed a normal left ventricular systolic function, ejection fraction 50-55%. We will proceed with a exercise thallium stress test on tomorrow morning for further evaluation. <DELORIS DARLING - Last Filed: 06/18/19 09:39> Medications and Allergies Active Meds: Active Medications Acetaminophen (Tylenol) 650 mg PO Q4H PRN PRN Reason: Pain MILD(1-3)/Fever >100.5/JOYCE Aspirin (Ecotrin) 325 mg PO QDAY [facility] Atorvastatin Calcium (Lipitor) 20 mg PO QHS [facility] Last Admin: 06/17/19 21:40 Dose: 20 mg Documented by: Heparin Sodium (Porcine) (Heparin) 5,000 unit SUB-Q Q8HR [facility] Last Admin: 06/18/19 05:54 Dose: 5,000 unit Documented by: Lisinopril (Zestril) 10 mg PO QDAY [facility] Last Admin: 06/17/19 14:40 Dose: 10 mg Documented by: Magnesium Hydroxide (Milk Of Magnesia) 30 ml PO Q4H PRN PRN Reason: Constipation Morphine Sulfate (Morphine) 2 mg IV Q4H PRN PRN Reason: Pain, Moderate (4-6) Last Admin: 06/18/19 01:39 Dose: 2 mg Documented by: Ondansetron HCl (Zofran) 4 mg IV Q8H PRN PRN Reason: Nausea And Vomiting Sodium Chloride (Sodium Chloride Flush Syringe 10 Ml) 10 ml IV BID [facility] Last Admin: 06/17/19 21:40 Dose: 10 ml Documented by: Sodium Chloride (Sodium Chloride Flush Syringe 10 Ml) 10 ml IV PRN PRN PRN Reason: LINE FLUSH Physical Examination Vital Signs Temp Pulse Resp BP Pulse Ox 98.4 F 65 18 149/91 97 06/16/19 20:45 06/16/19 20:45 06/16/19 20:45 06/16/19 20:45 06/16/19 20:45 Results 06/17/19 08:08 06/17/19 08:08 CBC 06/17/19 Range/Units 08:08 WBC 6.1 (4.5-11.0) K/mm3 RBC 4.45 (3.65-5.03) M/mm3 Hgb 13.5 (11.8-15.2) gm/dl Hct 41.1 (35.5-45.6) % Plt Count 257 (140-440) K/mm3 Lymph # 3.1 (1.2-5.4) K/mm3 [place] # 0.4 (0.0-0.8) K/mm3 Eos # 0.2 (0.0-0.4) K/mm3 Baso # 0.0 (0.0-0.1) K/mm3 Comprehensive Metabolic Panel 06/17/19 Range/Units 08:08 Sodium 141 (137-145) mmol/L Potassium 4.1 (3.6-5.0) mmol/L Chloride 102.4 (98-107) mmol/L Carbon Dioxide 22 (22-30) mmol/L BUN 15 (9-20) mg/dL Creatinine 0.9 (0.8-1.5) mg/dL Glucose 89 (75-100) mg/dL Calcium 9.6 (8.4-10.2) mg/dL Assessment and Plan I've seen and evaluated the patient and agree with the assessment and plan. Patient is presenting with atypical chest pain. Patient's reactive enzymes are normal. EKG shows normal sinus rhythm and nonspecific ST-T wave changes. Recommend stress test.
[2019-06-17 09:53] LABS: Basophils % (Auto) 0.5 % (0.0-1.8); Eosinophils # (Auto) 0.2 K/mm3 (0.0-0.4); Hematocrit 41.1 % (35.5-45.6); Hemoglobin 13.5 gm/dl (11.8-15.2); Lymphocytes # (Auto) 3.1 K/mm3 (1.2-5.4); Lymphocytes % (Auto) 51.9 % (13.4-35.0); Mean Corpuscular HGB Conc 33 % (32-34); Mean Corpuscular Volume 93 fl (84-94); Monocytes # (Auto) 0.4 K/mm3 (0.0-0.8); Monocytes % (Auto) 6.6 % (0.0-7.3); Platelet Count 257 K/mm3 (140-440); Red Blood Count 4.45 M/mm3 (3.65-5.03); Red Cell Distribution Width 13.8 % (13.2-15.2)
[2019-06-17 10:10] LABS: BUN/Creatinine Ratio 17; Blood Urea Nitrogen 15 mg/dL (9-20); Calcium 9.6 mg/dL (8.4-10.2); Hemolysis Index 7
[2019-06-17] MEDS: HEPARIN 5,000 UNIT/1 ML VIAL SUB-Q SCH ×2 (13:22→21:40)
--- NOTE | 2019-06-17 13:46 | Discharge Summary ---
Providers - Providers Date of Admission: 06/17/19 06:41 Date of discharge: 06/17/19 Attending physician: BOB ASH 06/17/19 05:26 Consult to Cardiology [CONS] Routine Consulting Provider: MARISOL SOLOMON Reason For Exam: chest pain Primary care physician: SHEAR [employer]SEMBLER Hospitalization Condition: Stable Pertinent studies: CXR Hospital course: Discharge diagnosis: Atypical chest pain, likely GERD HTN, stable Disposition: DC-01 TO HOME OR SELFCARE Time spent for discharge: 34 minutes Core Measure Documentation - Palliative Care Palliative Care/ Comfort Measures: Not Applicable - Core Measures Any of the following diagnoses?: none Exam - Constitutional Vitals: Temp Pulse Resp BP Pulse Ox 97.5 F L 60 18 138/83 95 06/17/19 12:15 06/17/19 12:15 06/17/19 12:15 06/17/19 12:15 06/17/19 12:15 General appearance: Present: no acute distress, well-nourished - EENT Eyes: Present: PERRL ENT: hearing intact, clear oral mucosa - Neck Neck: Present: supple, normal ROM - Respiratory Respiratory effort: normal Respiratory: bilateral: CTA - Cardiovascular Heart Sounds: Present: S1 & S2. Absent: rub, click - Extremities Extremities: pulses symmetrical, No edema Peripheral Pulses: within normal limits - Abdominal General gastrointestinal: Present: soft, non-tender, non-distended, normal bowel sounds - Integumentary Integumentary: Present: clear, warm, dry - Musculoskeletal Musculoskeletal: gait normal, strength equal bilaterally - Psychiatric Psychiatric: appropriate mood/affect, intact judgment & insight - Neurologic Neurologic: CNII-XII intact, moves all extremities Plan Activity: advance as tolerated Weight Bearing Status: Weight Bear as Tolerated Diet: low fat, low salt Follow up with: ABBIE BARRIENTOS MD [Primary Care Provider] - 3-5 Days DELORIS DARLING MD [Staff Physician] - 7 Days Prescriptions: Pantoprazole [Protonix] 40 mg PO QDAY #30 tablet
--- NOTE | 2019-06-17 13:50 | Event Note ---
Date: 06/17/19 Patient seen and examined cont current mx Plan for stress test tomorrow
[2019-06-17] MEDS: LISINOPRIL 10 MG TAB PO SCH (14:40)
[2019-06-18] MEDS: MORPHINE 2 MG/1 ML INJ IV PRN (01:39)
[2019-06-18] MEDS: HEPARIN 5,000 UNIT/1 ML VIAL SUB-Q SCH ×2 (05:54→14:26)
[2019-06-18] MEDS ORDERED: REGADENOSON 0.4 MG/5 ML INJ IV ONE (08:49)
--- NOTE | 2019-06-18 09:56 | Progress Note ---
Assessment and Plan Atypical chest pain Chest x-ray is negative. Cardiac isoenzymes are normal. EKG was a normal sinus rhythm with nonspecific Twave changes. Cardiac workup 08/2017: Normal myocardial perfusion thallium stress test. An echocardiogram showed a normal left ventricular systolic function, ejection fraction 50-55%. We will proceed with a exercise thallium stress test today for further evaluation. Subjective Date of service: 06/18/19 Interval history: No acute events. Resting comfortably. No chest pain or SOB. Objective Vital Signs Temp Pulse Resp BP Pulse Ox 06/18/19 05:22 97.7 F 63 16 112/76 95 06/17/19 22:29 97.3 F L 58 L 16 112/71 96 06/17/19 17:06 97.7 F 54 L 18 114/72 94 06/17/19 12:15 97.5 F L 60 18 138/83 95 - Labs and Meds CBC 06/17/19 Range/Units 08:08 WBC 6.1 (4.5-11.0) K/mm3 RBC 4.45 (3.65-5.03) M/mm3 Hgb 13.5 (11.8-15.2) gm/dl Hct 41.1 (35.5-45.6) % Plt Count 257 (140-440) K/mm3 Lymph # 3.1 (1.2-5.4) K/mm3 [place] # 0.4 (0.0-0.8) K/mm3 Eos # 0.2 (0.0-0.4) K/mm3 Baso # 0.0 (0.0-0.1) K/mm3 Comprehensive Metabolic Panel 06/17/19 Range/Units 08:08 Sodium 141 (137-145) mmol/L Potassium 4.1 (3.6-5.0) mmol/L Chloride 102.4 (98-107) mmol/L Carbon Dioxide 22 (22-30) mmol/L BUN 15 (9-20) mg/dL Creatinine 0.9 (0.8-1.5) mg/dL Glucose 89 (75-100) mg/dL Calcium 9.6 (8.4-10.2) mg/dL
[2019-06-18] MEDS ORDERED: ASPIRIN EC 325 MG TAB PO SCH (10:00)
[2019-06-18] MEDS ORDERED: FLU VACC QUAD 2019-20 (3 YR UP)/PF 60 MCG/0.5 ML SYRINGE IM ONE (12:00)
[2019-06-18 13:44] LABS: Basophils % (Auto) 0.7 % (0.0-1.8); Eosinophils # (Auto) 0.2 K/mm3 (0.0-0.4); Eosinophils % (Auto) 3.1 % (0.0-4.3); Hematocrit 39.4 % (35.5-45.6); Hemoglobin 13.1 gm/dl (11.8-15.2); Lymphocytes # (Auto) 2.7 K/mm3 (1.2-5.4); Lymphocytes % (Auto) 48.5 % (13.4-35.0); Mean Corpuscular HGB Conc 33 % (32-34); Mean Corpuscular Volume 92 fl (84-94); Monocytes # (Auto) 0.3 K/mm3 (0.0-0.8); Monocytes % (Auto) 5.4 % (0.0-7.3); Platelet Count 262 K/mm3 (140-440); Red Blood Count 4.29 M/mm3 (3.65-5.03); Red Cell Distribution Width 14.1 % (13.2-15.2)
[2019-06-18 13:56] LABS: INR 1.03 (0.87-1.13)
[2019-06-18 14:06] LABS: BUN/Creatinine Ratio 15; Blood Urea Nitrogen 15 mg/dL (9-20); Hemolysis Index 2
[2019-06-18 14:10] LABS: Partial Thromboplastin Time 32.2 Sec. (24.2-36.6)
[2019-06-18] MEDS: LISINOPRIL 10 MG TAB PO SCH (14:26)
--- NOTE | 2019-06-18 15:05 | Discharge Summary ---
Providers - Providers Date of Admission: 06/17/19 06:41 Date of discharge: 06/18/19 Attending physician: ANNITA CARDONA 06/17/19 05:26 Consult to Cardiology [CONS] Routine Consulting Provider: MARISOL SOLOMON Reason For Exam: chest pain Primary care physician: BURR GRINDER Hospitalization Reason for admission: atypical chest pain Condition: Stable Pertinent studies: Chest x-ray no acute abnormality Echo ; mild concentric LVH, EF 50-55% Trace MR and TR and VA Stress test; no ischemia Hospital course: Very pleasant 58-year-old obese -[place] male patient with significant history of hypertension admitted through emergency room with atypical chest pain. Patient was evaluated by cardiology and underwent stress test which was negative for reversible ischemia Preserved left ventricular function, patient was symptomatically managed, chest pain probably noncardiac Probably secondary to GERD, managed with Protonix Today patient is comfortable in no new complaints vital signs stable Physical examination is unremarkable Patient is hemodynamically and clinically stable for discharge Patient strongly advised to exercise as tolerated and weight reduction Advised low-salt and low-cholesterol diet Advised to see a inserting press operator should he have recurrent chest pain for further evaluation and management Patient verbalized understanding Patient is hemodynamically and clinically stable at discharge Discharge diagnosis; --Atypical chest pain; probably noncardiac, negative stress test Supportive care --Gastroesophageal reflux disease; probably the cause of chest pain Protonix, diet modification --Hypertension; moderate control Continue current antihypertensives and when necessary medications --Dyslipidemia; low-cholesterol diet Low dose statin, advised exercise as tolerated --Obesity; BMI 36.9 Advised diet modification, lifestyle changes, exercise as tolerated Candidate reduction when medically stable Patient verbalized understanding Hemodynamically and clinically stable at discharge Disposition: [facility] TO HOME OR SELFCARE Time spent for discharge: 32 min Core Measure Documentation - Palliative Care Palliative Care/ Comfort Measures: Not Applicable - Core Measures Any of the following diagnoses?: history only Exam - Constitutional Vitals: Temp Pulse Resp BP Pulse Ox 98.0 F 67 18 121/64 93 06/18/19 12:21 06/18/19 14:26 06/18/19 12:21 06/18/19 14:26 06/18/19 12:21 General appearance: Present: no acute distress, well-nourished - EENT Eyes: Present: PERRL, EOM intact - Neck Neck: Present: supple, normal ROM - Respiratory Respiratory effort: normal Respiratory: bilateral: diminished, negative: rales, rhonchi, wheezing - Cardiovascular Rhythm: regular Heart Sounds: Present: S1 & S2 - Extremities Extremities: no ischemia, No edema - Abdominal General gastrointestinal: Present: soft, non-tender, non-distended, normal bowel sounds - Integumentary Integumentary: Present: clear, warm - Musculoskeletal Musculoskeletal: strength equal bilaterally - Psychiatric Psychiatric: appropriate mood/affect, cooperative - Neurologic Neurologic: CNII-XII intact, moves all extremities Plan Activity: advance as tolerated Diet: low fat, low salt Follow up with: DELORIS DARLING MD [Staff Physician] - 7 Days PRIMARY CARE, [Referring] - 3-5 Days Prescriptions: AtorvaSTATin [Lipitor] 20 mg PO QHS #30 tablet Pantoprazole [Protonix] 40 mg PO QDAY #30 tablet lisinopriL [Zestril TAB] 10 mg PO QDAY #30 tablet
[2019-06-18 17:23] VITALS: BP 116/75
== END 2019-06-18 17:55 | disposition home or self-care (01) ==
LOC: ED 20:32 → UNDOADMIN 06-17 03:25 → 3A 06-17 03:25 → INTOOBSV 06-17 06:41
PROVIDERS: ADMIT Internal Medicine Geriatric Medicine; ATTEND Internal Medicine
DX: R07.89 Other chest pain (principal); I10 Essential (primary) hypertension; R06.02 Shortness of breath; K21.9 Gastro-esophageal reflux disease without esophagitis; E78.5 Hyperlipidemia, unspecified; E66.9 Obesity, unspecified; Z68.36 Body mass index [BMI] 36.0-36.9, adult; Z79.899 Other long term (current) drug therapy; Z79.82 Long term (current) use of aspirin; Z79.2 Long term (current) use of antibiotics; Z23 Encounter for immunization
CPT/HCPCS: 36415; 71046; 78452; 80048; 80053; 83880; 84484; 85025; 85379; 85610; 85730; 90686; 93005; 93010; 93017; 93306; 96372; 96374; 96375; 96376; 99284; A9270; A9502; G0008; G0378; J1644; J2270; J2405; J2785; 90471; Q0162